=== PATIENT | male | born 1975 | race Caucasian/White ===

== ENCOUNTER 2017-08-22 19:50 | Emergency (ER) | payer SELFPAY ==
[2017-08-22 20:02] VITALS: BP 121/67; BMI 23.5
--- NOTE | 2017-08-22 21:20 | DR.ABDMALE ---
HPI - Time seen Time seen: 21:30 - PCP Primary Care Physician: NFD - Complaint Chief Complaint Doctors Comments: Patient presents with complaint of abdominal pain. He has been worked up at his local clinic who referred him to the ED. He had a history of colitis one year ago, recently has had increased abdominal distention. Denies diarrhea, vomiting or fever. Chief Complaint:: STARTED HAVING SEVERE ABDOMINAL PAIN 2 WEEKS AGO WHICH HAS BECAME WORSE TODAY. Self Treatment fo Chief Complaint: PATIENT STATES THAT HE HAS BEEN HAVING THIS PROBLEM OFF AND ON FOR OVER A YEAR NOW. WAS TOLD HE HAD COLITIS PREVIOUSLY. - Mode of arrival Mode of Arrival: Ambulatory - Timing Onset of Chief Complaint: 08/08/17 PMH - PMH Past Medical History: No Past Surgical History: No - Family History History of Family Medical Conditions: Yes Family Medical History: Cancer - Social History Does patient currently use any type of tobacco product: No Have you used tobacco products in the last 12 months: Yes Type of Tobacco Use: Cigarettes Does any household member use tobacco: Yes Alcohol Use: None Do you use any recreational Drugs:: No Lives With: Family Lives Where: Home - infectious screening In the last 2 months have you had wt loss of >10#?: NO Have you had fever, night sweats or hemotysis?: No Have you traveled outside the country in the last 6 months?: No Isolation: Standard ROS - Review of Systems Eyes: No Symptoms Reported ENTM: No Symptoms Reported Respiratoy: No Symptoms Reported Cardiovascular: No Symptoms Reported Gastrointestinal/Abdominal: No Symptoms Reported Genitourinary: No Symptoms Reported Neurological: No Symptoms Reported Musculoskeletal: No Symptoms Reported Integumentary: No Symptoms Reported Hematologic/Lymphatic: No Symptoms Reported Endocrine: No Symptoms Reported Psychiatric: No Symptoms Reported All Other Systems: Reviewed and Negative PE - Vital Signs Vital Signs: Temp Pulse Resp BP Pulse Ox 08/22/17 19:52 98.9 F 69 20 121/67 99 - General Limitations: No Limitations General Appearance: Alert, In No Apparent Distress - Head Head Exam: Normal Inspection, Atraumatic - Eyes Eye exam: Normal Appearance, PERRL, EOMI - ENT ENT Exam: Normal Exam - Neck Neck Exam: Normal Inspection - Chest Chest Inspection: Normal Inspection - Respiratory Respiratory Exam: Normal Lung Sounds Bilat Respiratory Exam: Bilateral Clear to Auscultation - Cardiovascular Cardiovascular Exam: Regular Rate - Abdominal Exam Abdominal Exam: Normal Inspection Abdominal Tenderness: negative: RUQ, RLQ, LUQ, LLQ, Epigastrium, Suprapubic, Diffuse, Mild, Moderate, Severe, Other - Rectal Rectal Exam: Deferred - Back Back Exam: Normal Inspection - Extremeties Extremities Exam: Normal Inspection, Full ROM - Exam: Male: Deferred - Neurologic Neurological Exam: Alert, Oriented X3, CN II-XII Intact - Psychiatric Psychiatric Exam: Normal Affect, Normal Mood - Skin Skin Exam: Warm, Dry, Intact Course - Reevaluation 1st: Unchanged ROR - Labs Reviewed Result Diagrams: 08/22/17 21:45 08/22/17 21:45 Laboratory: WBC 5.5 X10^3/uL (3.6-10.0) 08/22/17 21:45 RBC 4.77 X10^6/uL (4.7-6.0) 08/22/17 21:45 Hgb 14.2 g/dL (13.5-18.0) 08/22/17 21:45 Hct 41.3 % (42.0-54.0) L 08/22/17 21:45 MCV 86.6 fL (80.0-100.0) 08/22/17 21:45 MCH 29.8 pg (27.0-34.0) 08/22/17 21:45 MCHC 34.4 g/dL (33.0-35.0) 08/22/17 21:45 RDW 12.8 % (11.6-16.5) 08/22/17 21:45 Plt Count 225 X10^3/uL (150.0-450.0) 08/22/17 21:45 MPV 7.3 fL (7.4-11.0) L 08/22/17 21:45 Neut % (Auto) 45.3 % (42.0-75.0) 08/22/17 21:45 Lymph % (Auto) 38.5 % (21.0-51.0) 08/22/17 21:45 [place] % (Auto) 11.2 % (0.0-13.0) 08/22/17 21:45 Eos % (Auto) 3.7 % (0.9-2.9) H 08/22/17 21:45 Baso % (Auto) 1.3 % (0.2-1.0) H 08/22/17 21:45 Neut # (Auto) 2.5 x10^3/uL (2.2-4.8) 08/22/17 21:45 Lymph # (Auto) 2.1 X10^3/uL (1.3-2.9) 08/22/17 21:45 [place] # (Auto) 0.6 x10^3/uL (0.3-0.8) 08/22/17 21:45 Eos # (Auto) 0.2 x10^3/uL (0.0-0.2) 08/22/17 21:45 Baso # (Auto) 0.1 X10^3/uL (0.0-0.1) 08/22/17 21:45 Absolute Nucleated RBC 0.0 /100WBC 08/22/17 21:45 Sodium 139 mmol/L (136-145) 08/22/17 21:45 Corrected Sodium TNP 08/22/17 21:45 Potassium 4.2 mmol/L (3.5-5.1) 08/22/17 21:45 Chloride 103 mmol/L (98-107) 08/22/17 21:45 Carbon Dioxide 32.3 mmol/L (21-32) H 08/22/17 21:45 BUN 9 mg/dL (7-18) 08/22/17 21:45 Creatinine 1.07 mg/dL (0.70-1.30) 08/22/17 21:45 Est GFR (MDRD) Af Amer > 60 (>60) 08/22/17 21:45 Est GFR (MDRD) Non-Af > 60 (>60) 08/22/17 21:45 Glucose 109 mg/dL (65-99) H 08/22/17 21:45 Calcium 8.2 mg/dL (8.5-10.1) L 08/22/17 21:45 Corrected Calcium TNP 08/22/17 21:45 Total Bilirubin 0.40 mg/dL (0.2-1.0) 08/22/17 21:45 AST 55 Units/L (15-37) H 08/22/17 21:45 ALT 135 Units/L (12-78) H 08/22/17 21:45 Alkaline Phosphatase 69 Units/L (46-116) 08/22/17 21:45 C-Reactive Protein 1.80 mg/L (0-3.0) 08/22/17 21:45 Total Protein 7.2 g/dL (6.4-8.2) 08/22/17 21:45 Albumin 3.7 g/dL (3.4-5.0) 08/22/17 21:45 Globulin 3.5 g/dL (2.5-4.5) 08/22/17 21:45 Albumin/Globulin Ratio 1.1 Ratio (1.1-2.1) 08/22/17 21:45 Specimen Type Clean catch urine 08/22/17 21:50 Urine Color Yellow (YELLOW) 08/22/17 21:50 Urine Appearance Clear (CLEAR) 08/22/17 21:50 Urine pH 5.0 (5.0 - 8.0) 08/22/17 21:50 Ur Specific [place] 1.015 (1.000-1.030) 08/22/17 21:50 Urine Protein Negative (NEGATIVE) 08/22/17 21:50 Urine Glucose (UA) Negative (NEGATIVE) 08/22/17 21:50 Urine Ketones Negative (NEGATIVE) 08/22/17 21:50 Urine Occult Blood Negative (NEGATIVE) 08/22/17 21:50 Urine Nitrite Negative (NEGATIVE) 08/22/17 21:50 Urine Bilirubin Negative (NEGATIVE) 08/22/17 21:50 Urine Urobilinogen Normal (NORMAL) 08/22/17 21:50 Ur Leukocyte Esterase Negative (NEGATIVE) 08/22/17 21:50 Urine RBC None seen /HPF (NONE SEEN) 08/22/17 21:50 Urine WBC None seen /HPF (NONE SEEN) 08/22/17 21:50 Ur Squamous Epith Cells Rare /HPF (NEGATIVE) 08/22/17 21:50 Urine Bacteria Negative /HPF (NEGATIVE) 08/22/17 21:50 Ur Culture Indicated? No/not indicated 08/22/17 21:50 - XRAY XRAY Interpreted by: Radiologist (CT Abdo/Pelv: No acute abnormality to explain patient's symptoms; mild colonic diverticulosis) - Diagnosis Discharge Problem: Abdominal pain Qualifiers: Abdominal location: unspecified location Qualified Code(s): R10.9 - Unspecified abdominal pain - Discharge Plan Condition: Stable - Follow ups/Referrals Follow ups/Referrals: NFD,None [Primary Care Provider] - 3 days - Instructions
[2017-08-22 21:51] LABS: BASOPHILS # (AUTO) 0.1 X10^3/uL (0.0-0.1); BASOPHILS % (AUTO) 1.3 % (0.2-1.0); EOSINOPHILS # (AUTO) 0.2 x10^3/uL (0.0-0.2); EOSINOPHILS % (AUTO) 3.7 % (0.9-2.9); HEMATOCRIT 41.3 % (42.0-54.0); HEMOGLOBIN 14.2 g/dL (13.5-18.0); LYMPHOCYTES # (AUTO) 2.1 X10^3/uL (1.3-2.9); LYMPHOCYTES % (AUTO) 38.5 % (21.0-51.0); MEAN CORPUSCULAR HEMOGLOBIN 29.8 pg (27.0-34.0); MEAN CORPUSCULAR HGB CONC 34.4 g/dL (33.0-35.0); MEAN CORPUSCULAR VOLUME 86.6 fL (80.0-100.0); MEAN PLATELET VOLUME 7.3 fL (7.4-11.0); MONOCYTES # (AUTO) 0.6 x10^3/uL (0.3-0.8); MONOCYTES % (AUTO) 11.2 % (0.0-13.0); NEUTROPHILS # (AUTO) 2.5 x10^3/uL (2.2-4.8); NEUTROPHILS % (AUTO) 45.3 % (42.0-75.0); PLATELET COUNT 225 X10^3/uL (150.0-450.0); RED BLOOD COUNT 4.77 X10^6/uL (4.7-6.0); RED CELL DISTRIBUTION WIDTH 12.8 % (11.6-16.5); WHITE BLOOD COUNT 5.5 X10^3/uL (3.6-10.0)
[2017-08-22 22:02] LABS: BILIRUBIN,URINE NEGATIVE (NEGATIVE); BLOOD/HEMOGLOBIN,URINE NEGATIVE (NEGATIVE); GLUCOSE, URINE NEGATIVE (NEGATIVE); KETONES,URINE NEGATIVE (NEGATIVE); LEUKOCYTE ESTERASE ,URINE NEGATIVE (NEGATIVE); NITRITES,URINE NEGATIVE (NEGATIVE); PROTEIN,URINE NEGATIVE (NEGATIVE); UROBILINOGEN,URINE NORMAL (NORMAL)
[2017-08-22 22:04] LABS: ALANINE AMINOTRANSFERASE 135 Units/L (12-78); ALBUMIN 3.7 g/dL (3.4-5.0); ALKALINE PHOSPHATASE 69 Units/L (46-116); ASPARTATE AMINO TRANSFERASE 55 Units/L (15-37); BLOOD UREA NITROGEN 9 mg/dL (7-18); CALCIUM 8.2 mg/dL (8.5-10.1); CARBON DIOXIDE 32.3 mmol/L (21-32); CHLORIDE 103 mmol/L (98-107); CREATININE 1.07 mg/dL (0.70-1.30); SODIUM 139 mmol/L (136-145); TOTAL PROTEIN 7.2 g/dL (6.4-8.2); eGFR BLACK RACES > 60 (>60); eGFR NON BLACK RACES > 60 (>60)
[2017-08-22 22:10] LABS: APPEARANCE,URINE CLEAR (CLEAR); BACTERIA,URINE NEGATIVE /HPF (NEGATIVE); COLOR,URINE YELLOW (YELLOW); RBC,URINE NONE SEEN /HPF (NONE SEEN); SQUAMOUS EPITHELIAL CELL,UR RARE /HPF (NEGATIVE)
--- NOTE | 2017-08-22 23:51 | CT ---
CT abdomen and pelvis with contrast Indication: Abdominal pain and swelling Technique: Helical CT images of the abdomen and pelvis were obtained with IV contrast. Reformatted im ages in the coronal and sagittal planes were also generated for review. Comparison: None Findings: Lung bases are clear. No aggressive osseous lesions are identified. The liver, gallbladder, spleen, pancreas, adrenals and kidneys are unremarkable. There is mild colonic diverticulosis without evidence for acute diverticulitis. There is no bowel inf lammation or obstruction. The appendix is normal. The IVC, abdominal aorta and urinary bladder are no rmal. The prostate is normal in size. No free air, free fluid or lymphadenopathy is identified. Impression: No acute abnormality to explain patient's symptoms. Mild colonic diverticulosis. Reported By:
--- NOTE | 2017-08-23 00:07 | RAD ---
History: Abdominal pain. Technique: Acute abdominal series. The PA view chest with flat and upright views of the abdomen. Four radiographs total. Comparison:NONE Findings: Chest radiograph demonstrates biapical pleural thickening and reticulonodular interstitial opacities. Jyoti appear slightly elevated. Cardiac silhouette is normal in size. No free air demonstrated under the hemidiaphragms. Flat and upright views of the abdomen demonstrate a nonspecific nonobstructive bowel gas pattern. Thi s were shadows appear grossly unremarkable. Impression: 1. Nonspecific nonobstructive bowel gas pattern. 2. Biapical pleural thickening and reticulonodular interstitial opacities with elevation of the jyoti suggested. Considerations would include sarcoidosis, hypersensitivity pneumonitis, pneumoconiosis. Co nsider correlation with chest CT on a nonemergent basis. Reported By:
== END 2017-08-23 00:42 | disposition home or self-care (01) ==
LOC: ER 19:50
DX: R10.84 Generalized abdominal pain (principal); K57.90 Diverticulosis of intestine, part unspecified, without perforation or abscess without bleeding
CPT/HCPCS: 36415; 74022; 74177; 80053; 81001; 85025; 86140; 99283; 99284; A4222